=== PATIENT | female | born 1980 | race Two or more races ===

== ENCOUNTER 2019-04-17 11:27 | Emergency (ER) | payer OTHER ==
[~2019-04-17] VITALS: Ht 162.6 cm; Wt 111.1 kg
[2019-04-17 11:42] VITALS: BP 151/93
[2019-04-17] MEDS ORDERED: cefTRIAXone SOD 1,000 MG VL IM ONE (12:45)
[2019-04-17] MEDS ORDERED: IBUPROFEN 800 MG TAB PO ONE (12:45)
== END 2019-04-17 13:03 | disposition home or self-care (01) ==
LOC: ER 11:31
DX: H66.92 Otitis media, unspecified, left ear (principal); K04.7 Periapical abscess without sinus
CPT/HCPCS: 96372; 99283; J0696

== ENCOUNTER 2019-08-10 01:57 | Emergency (ER) | payer OTHER ==
[~2019-08-10] VITALS: Ht 162.6 cm; Wt 117.9 kg
[2019-08-10 03:14] VITALS: BP 138/78
[2019-08-10 03:32] LABS: Basophils # (auto) 0 uL; Eosinophils # (auto) 0.1 uL; Eosinophils % (auto) 1.2 % (0.0-7.0); Hemoglobin 8.6 g/dL (12.2-16.2); Mean Corpuscular Volume 74.8 fL (80.0-100.0); Monocytes # (auto) 0.4 uL; Nucleated Red Blood Cells % 0.1 %
[2019-08-10 03:35] LABS: Basophils % (auto) 0.7 % (0.0-2.0); Hematocrit 27.1 % (36.0-46.0); Lymphocytes # (auto) 1.2 uL; Lymphocytes % (auto) 18.2 % (10.0-50.0); Mean Corpuscular Hemoglobin 23.8 pg (28.0-32.0); Mean Corpuscular Hgb Conc. 31.8 g/dL (32.0-36.0); Monocytes % (auto) 5.9 % (0.0-12.0); Platelet Count (auto) 274 10^3/uL (140-450); Red Blood Cells 3.62 10^6/uL (4.0-5.20); Red Cell Distribution Width 15.6 % (11.8-14.3); White Blood Cell 6.7 10^3/uL (4.4-10.8)
[2019-08-10] MEDS ORDERED: ONDANSETRON HCL 4 MG/2 ML VIAL IV ONE (04:15)
[2019-08-10] MEDS ORDERED: MORPHINE SULFATE 4 MG/ML SYR/VIAL IV ONE (04:15)
[2019-08-10 04:17] LABS: Albumin 3.2 g/dL (3.4-5.0); Calcium 8.2 mg/dL (8.5-10.1); Potassium 3.8 mmol/L (3.5-5.1)
[2019-08-10 04:19] LABS: Bilirubin, Total 0.3 mg/dL (0.2-1.0); Total Protein 7.7 g/dL (6.4-8.2)
[2019-08-10 04:26] LABS: Urine Amorphous Crystal FEW /hpf (None Seen); Urine Bacteria MOD /hpf (None Seen); Urine Blood 3+ /uL (Negative); Urine Mucus FEW (None Seen); Urine Specific Gravity 1.022 (1.001-1.035); Urine WBC 27 /hpf (0 - 5)
== END 2019-08-10 05:14 | disposition home or self-care (01) ==
LOC: ER 02:00
DX: N39.0 Urinary tract infection, site not specified (principal); R42 Dizziness and giddiness
CPT/HCPCS: 36415; 74176; 80053; 81001; 81025; 82150; 83690; 84702; 85025; 96374; 96375; 99284; J2270; J2405

== ENCOUNTER 2019-08-26 22:07 | Emergency (ER) | payer OTHER ==
[~2019-08-26] VITALS: Ht 162.6 cm; Wt 122.0 kg
[2019-08-26 22:43] LABS: Basophils # (auto) 0.1 uL; Basophils % (auto) 0.8 % (0.0-2.0); Eosinophils # (auto) 0.1 uL; Eosinophils % (auto) 0.7 % (0.0-7.0); Hematocrit 22.8 % (36.0-46.0); Hemoglobin 7.3 g/dL (12.2-16.2); Lymphocytes # (auto) 1.4 uL; Lymphocytes % (auto) 16.2 % (10.0-50.0); Mean Corpuscular Hemoglobin 22.8 pg (28.0-32.0); Mean Corpuscular Hgb Conc. 31.8 g/dL (32.0-36.0); Mean Corpuscular Volume 71.6 fL (80.0-100.0); Monocytes # (auto) 0.5 uL; Monocytes % (auto) 5.7 % (0.0-12.0); Neutrophils # (auto) 6.7 uL; Neutrophils % (auto) 76.6 % (37.0-80.0); Nucleated Red Blood Cells % 0.1 %; Platelet Count (auto) 267 10^3/uL (140-450); Red Blood Cells 3.19 10^6/uL (4.0-5.20); Red Cell Distribution Width 16.2 % (11.8-14.3); White Blood Cell 8.8 10^3/uL (4.4-10.8)
[2019-08-26 22:59] LABS: Urine Bacteria NONE SEEN /hpf (None Seen); Urine Blood 2+ /uL (Negative); Urine Mucus FEW (None Seen); Urine Specific Gravity 1.016 (1.001-1.035); Urine WBC 5 /hpf (0 - 5)
[2019-08-26 23:01] LABS: Albumin 3.6 g/dL (3.4-5.0); BUN/Creatinine Ratio 12.9; Calcium 8.6 mg/dL (8.5-10.1); Potassium 3.8 mmol/L (3.5-5.1)
[2019-08-26 23:04] LABS: Bilirubin, Total 0.2 mg/dL (0.2-1.0); Total Protein 7.6 g/dL (6.4-8.2)
[2019-08-27] MEDS ORDERED: MORPHINE SULFATE 4 MG/ML SYR/VIAL IV ONE (00:45)
[2019-08-27] MEDS ORDERED: ONDANSETRON HCL 4 MG/2 ML VIAL IV ONE (00:45)
[2019-08-27 02:58] VITALS: BP 128/40
== END 2019-08-27 05:26 | disposition home or self-care (01) ==
LOC: ER 22:08
DX: N93.8 Other specified abnormal uterine and vaginal bleeding (principal); R10.2 Pelvic and perineal pain; R42 Dizziness and giddiness; J45.909 Unspecified asthma, uncomplicated; F17.210 Nicotine dependence, cigarettes, uncomplicated; Z90.49 Acquired absence of other specified parts of digestive tract
CPT/HCPCS: 36415; 76856; 80053; 81001; 84702; 85025; 86850; 86900; 86901; 96374; 96375; 99284; J2270; J2405

== ENCOUNTER 2023-10-25 16:41 | Emergency (ER) | payer MEDICAID, OTHER ==
[~2023-10-25] VITALS: Ht 162.6 cm; Wt 109.4 kg
[2023-10-25 16:58] VITALS: BP 155/96; PULSE 103; RESP 22; O2SAT 100
[2023-10-25 18:37] LABS: Basophils # (auto) 0 10 ^3/uL (0-0.2); Basophils % (auto) 0.4 % (0.0-2.0); Eosinophils # (auto) 0.1 10 ^3/uL (0-0.8); Monocytes # (auto) 0.4 10 ^3/uL (0-1.3)
[2023-10-25 18:38] LABS: Eosinophils % (auto) 1.6 % (0.0-7.0); Hematocrit 27.1 % (36.0-46.0); Lymphocytes # (auto) 1.4 10 ^3/uL (0.4-5.4); Lymphocytes % (auto) 17.3 % (10.0-50.0); Mean Corpuscular Hemoglobin 18.7 pg (28.0-32.0); Mean Corpuscular Hgb Conc. 29.7 g/dL (32.0-36.0); Mean Corpuscular Volume 63.1 fL (80.0-100.0); Monocytes % (auto) 4.9 % (0.0-12.0); Neutrophils # (auto) 6.1 10 ^3/uL (1.6-8.6); Neutrophils % (auto) 75.8 % (37.0-80.0); Nucleated Red Blood Cells % 0.1 %; White Blood Cell 8.1 10^3/uL (4.4-10.8)
[2023-10-25 18:43] LABS: Alkaline Phosphatase 76 U/L (46-116); Anion Gap 5 (5-15); Aspartate Aminotransferase 9 U/L (13-40); BUN/Creatinine Ratio 17.4 (10.0-20.0); Blood Urea Nitrogen 12 mg/dL (9-23); Carbon Dioxide 26 mmol/L (20-30); Chloride 108 mmol/L (98-107); Glucose 97 mg/dL (74-106); Potassium 3.7 mmol/L (3.5-5.1); Sodium 139 mmol/L (136-145)
[2023-10-25 18:44] LABS: Bilirubin, Total 0.2 mg/dL (0.2-1.0)
[2023-10-25 18:57] LABS: Alanine Aminotransferase < 9 U/L (7-40)
[2023-10-25 19:20] LABS: Hypochromia Marked; Platelet Estimate Adequate
[2023-10-25 19:34] LABS: Lipase 47 U/L (12-53)
[2023-10-25 19:57] LABS: Urine Bacteria FEW /hpf (None Seen); Urine Blood TRACE /uL (Negative); Urine Clarity Clear (Clear); Urine Color Yellow (Yellow); Urine Mucus FEW (None Seen); Urine Protein, UAD 1+ (Negative); Urine Specific Gravity 1.026 (1.001-1.035); Urine Urobilinogen Normal (Negative); Urine WBC 1 /hpf (0 - 5)
== END 2023-10-27 00:21 | disposition left against medical advice (07) ==
LOC: ER 16:41
DX: K59.00 Constipation, unspecified (principal); R10.12 Left upper quadrant pain; R10.32 Left lower quadrant pain; J45.909 Unspecified asthma, uncomplicated; F17.210 Nicotine dependence, cigarettes, uncomplicated; F12.10 Cannabis abuse, uncomplicated; Z32.02 Encounter for pregnancy test, result negative
CPT/HCPCS: 36415; 80053; 81001; 81025; 83690; 85025; 99283; J7030

== ENCOUNTER 2023-10-27 07:30 | Inpatient (IN) | payer MEDICAID ==
[~2023-10-27] VITALS: Ht 162.6 cm; Wt 112.0 kg
[2023-10-27 08:22] LABS: Urine Bacteria NONE SEEN /hpf (None Seen); Urine Blood TRACE /uL (Negative); Urine Clarity Clear (Clear); Urine Color Colorless (Yellow); Urine Mucus FEW (None Seen); Urine Protein, UAD TRACE (Negative); Urine Urobilinogen Normal (Negative); Urine WBC <1 /hpf (0 - 5); Urine pH 5.5 (5.0-8.0)
[2023-10-27 08:22] LABS: Basophils # (auto) 0 10 ^3/uL (0-0.2); Basophils % (auto) 0.5 % (0.0-2.0); Eosinophils # (auto) 0.1 10 ^3/uL (0-0.8); Hemoglobin 8.2 g/dL (12.2-16.2); Lymphocytes # (auto) 1.1 10 ^3/uL (0.4-5.4)
[2023-10-27 08:24] LABS: Eosinophils % (auto) 2.1 % (0.0-7.0); Hematocrit 28.2 % (36.0-46.0); Lymphocytes % (auto) 17.5 % (10.0-50.0); Mean Corpuscular Hemoglobin 18.5 pg (28.0-32.0); Mean Corpuscular Hgb Conc. 28.9 g/dL (32.0-36.0); Monocytes # (auto) 0.3 10 ^3/uL (0-1.3); Monocytes % (auto) 5.6 % (0.0-12.0); Neutrophils # (auto) 4.6 10 ^3/uL (1.6-8.6); Neutrophils % (auto) 74.3 % (37.0-80.0); Red Blood Cells 4.41 10^6/uL (4.0-5.20); Red Cell Distribution Width 18.4 % (11.8-14.3); White Blood Cell 6.2 10^3/uL (4.4-10.8)
[2023-10-27 08:50] LABS: Albumin 3.8 g/dL (3.2-4.8); Alkaline Phosphatase 68 U/L (46-116); Anion Gap 4 (5-15); Aspartate Aminotransferase 9 U/L (13-40); BUN/Creatinine Ratio 21.9 (10.0-20.0); Bilirubin, Total 0.2 mg/dL (0.2-1.0); Blood Urea Nitrogen 16 mg/dL (9-23); Calcium 8.3 mg/dL (8.7-10.4); Carbon Dioxide 22 mmol/L (20-30); Chloride 113 mmol/L (98-107); Glucose 95 mg/dL (74-106); Lipase 57 U/L (12-53); Sodium 139 mmol/L (136-145); Total Protein 7.8 g/dL (5.7-8.2)
[2023-10-27] MEDS: SODIUM CHLORIDE 0.9% 1,000 ML IV ONE ×2 (08:53→09:50)
[2023-10-27] MEDS: ONDANSETRON HCL 4 MG/2 ML VIAL IV ONE (08:56)
[2023-10-27] MEDS: MORPHINE SULFATE 4 MG/ML SYR/VIAL IV ONE (08:56)
[2023-10-27 08:58] LABS: Alanine Aminotransferase < 9 U/L (7-40)
[2023-10-27] MEDS: cefTRIAXone 1GM/50ML D5W 50 ML IV ONE (09:48)
[2023-10-27] MEDS: metroNIDAZOLE 500MG/100ML 100 ML IV ONE (10:45)
[2023-10-27] MEDS ORDERED: ONDANSETRON HCL 4 MG/2 ML VIAL IV PRN (11:15)
[2023-10-27] MEDS: PANTOPRAZOLE 40 MG/10 ML VIAL INJ IV ONE (11:15)
[2023-10-27 11:20] LABS: Triglycerides 99 mg/dL (< 150)
[2023-10-27 11:21] LABS: LDL Cholesterol 77 mg/dL (< 100)
[2023-10-27 11:22] LABS: HDL Cholesterol 50 mg/dL (40-59)
[2023-10-27] MEDS: DOXYCYCLINE 100MG/250ML 250 ML IV ONE (11:30)
[2023-10-27] MEDS: AMPICILLIN SOD 2GM INJ 2 GM in SODIUM CHL 0.9% 100 ML IV ONE (11:30)
[2023-10-27] MEDS ORDERED: GENTAMICIN PER PHARMACY 0 ML IV SCH (11:30)
[2023-10-27] MEDS: DOXYCYCLINE 100MG/250ML 250 ML IV SCH (11:30)
[2023-10-27] MEDS: SODIUM CHLORIDE 0.9% 1,000 ML IV SCH (11:38)
[2023-10-27 11:48] LABS: Cholesterol 134 mg/dL (< 200)
[2023-10-27] MEDS ORDERED: AMPICILLIN SOD 2GM INJ 2 GM in SODIUM CHL 0.9% 100 ML IV SCH (12:00)
[2023-10-27 12:40] LABS: Amphetamine Screen, Urine Neg (NEGATIVE); Barbiturate Scree,Urine Neg (NEGATIVE); Benzodiazephine Screen, Urine Neg (NEGATIVE); Cannabinoid Screen, Urine Pos (NEGATIVE); Cocaine Screen, Urine Neg (NEGATIVE); Opiate Scree,Urine Neg (NEGATIVE); Phencyclidine Screen, Urine Neg (NEGATIVE)
[2023-10-27 12:59] LABS: Erythrocyte Sedimentation Rate 58 mm/hr (0-20)
[2023-10-27 13:40] LABS: Anisocytosis Slight; Hypochromia Moderate
[2023-10-27 13:41] LABS: Platelet Estimate Adequate
[2023-10-27] MEDS: CLINDAMYCIN 900MG IV 50 ML IV SCH (14:00)
[2023-10-27] MEDS ORDERED: metroNIDAZOLE 500MG/100ML 100 ML IV SCH (14:00)
[2023-10-27] MEDS: KETOROLAC TROMETH 30 MG/ML 1ML VIAL IV ONE (14:58)
[2023-10-27 16:33] VITALS: RESP 16
[2023-10-27 16:47] VITALS: BP 137/75; PULSE 60; RESP 16; TEMP 98; O2SAT 99
[2023-10-27] MEDS ORDERED: PNEUMOCOCCAL VACC POLYS 25 MCG/0.5 ML VIAL IM ONE (17:30)
[2023-10-27] MEDS ORDERED: INFLUENZA QUAD 2023-2024 0.5 ML SYRG IM ONE (17:30)
[2023-10-27] MEDS: KETOROLAC TROMETH 30 MG/ML 1ML VIAL IV PRN (21:04)
[2023-10-28] VITALS (7 sets, daily range): BP systolic 125–160; BP diastolic 65–105; PULSE 62–79; RESP 16–22; TEMP 97.6–98.1; O2SAT 95–99
[2023-10-28] MEDS: ACETAMINOPHEN 325 MG TAB PO PRN (00:02)
[2023-10-28] MEDS: TEMAZEPAM 15 MG CAP PO ONE (00:02)
[2023-10-28] MEDS: HYDROcodone-ACET 10/325MG TAB PO ONE (00:41)
[2023-10-28 08:01] LABS: Alkaline Phosphatase 64 U/L (46-116); Anion Gap 3 (5-15); BUN/Creatinine Ratio 15.9 (10.0-20.0); Blood Urea Nitrogen 10 mg/dL (9-23); Calcium 8.1 mg/dL (8.5-10.1); Carbon Dioxide 22 mmol/L (20-30); Chloride 113 mmol/L (98-107); Glucose 82 mg/dL (74-106); Potassium 3.8 mmol/L (3.5-5.1); Sodium 138 mmol/L (136-145)
[2023-10-28 08:02] LABS: Albumin 3.3 g/dL (3.2-4.8); Aspartate Aminotransferase 10 U/L (13-40)
[2023-10-28 08:03] LABS: Bilirubin, Total 0.3 mg/dL (0.2-1.0); Total Protein 6.3 g/dL (5.7-8.2)
[2023-10-28 08:04] LABS: Alanine Aminotransferase < 9 U/L (7-40)
[2023-10-28 08:21] LABS: Basophils # (auto) 0 10 ^3/uL (0-0.2); Eosinophils # (auto) 0.2 10 ^3/uL (0-0.8); Hemoglobin 7.4 g/dL (12.2-16.2); Lymphocytes # (auto) 1.2 10 ^3/uL (0.4-5.4); Mean Corpuscular Volume 64.9 fL (80.0-100.0); Neutrophils # (auto) 4.1 10 ^3/uL (1.6-8.6); Nucleated Red Blood Cells % 0.1 %; White Blood Cell 5.8 10^3/uL (4.4-10.8)
[2023-10-28 08:24] LABS: Basophils % (auto) 0.5 % (0.0-2.0); Eosinophils % (auto) 2.6 % (0.0-7.0); Hematocrit 25.1 % (36.0-46.0); Lymphocytes % (auto) 20.2 % (10.0-50.0); Mean Corpuscular Hemoglobin 19.1 pg (28.0-32.0); Mean Corpuscular Hgb Conc. 29.4 g/dL (32.0-36.0); Monocytes # (auto) 0.4 10 ^3/uL (0-1.3); Monocytes % (auto) 6.2 % (0.0-12.0); Neutrophils % (auto) 70.5 % (37.0-80.0); Red Blood Cells 3.87 10^6/uL (4.0-5.20)
[2023-10-28] MEDS ORDERED: cefTRIAXone 1GM/50ML D5W 50 ML IV SCH (09:00)
[2023-10-28] MEDS ORDERED: ENOXAPARIN SOD 40 MG/0.4 ML SYRINGE SC SCH (10:00)
[2023-10-28 10:02] LABS: Anisocytosis Slight; Hypochromia Moderate; Platelet Estimate Adequate
[2023-10-28 10:32] LABS: INR 1.08 (0.9-1.15); Partial Thromboplastin Time 25.8 SEC (24.5-34.5); Prothrombin Time 11.3 sec (9.3-11.8)
[2023-10-28] MEDS: PANTOPRAZOLE 40 MG/10 ML VIAL INJ IV SCH (10:44)
[2023-10-28 11:11] LABS: Hepatitis B Surface Antigen Negative (Negative)
[2023-10-28 11:32] LABS: Hepatitis C Antibody Negative (Negative)
[2023-10-28 11:48] LABS: Folate (Folic Acid) 10.53 ng/mL (>5.38)
[2023-10-28 12:10] LABS: % Iron Saturation 5.2 % (15-50)
[2023-10-28] MEDS: D5W 5% IV SCH (18:42)
[2023-10-28] MEDS: GENTAMICIN SULFATE IV SCH (18:42)
[2023-10-28] MEDS: GADOTERATE MEG 10 MMOL/20ml INJ (0.5MMOL/ml) IV ONE (18:43)
[2023-10-28] MEDS: ERGOCALCIFEROL 50,000 UNIT(1.25MG) CAP PO SCH (20:50)
[2023-10-28] MEDS: TEMAZEPAM 15 MG CAP PO PRN (22:59)
[2023-10-29] VITALS (7 sets, daily range): BP systolic 124–168; BP diastolic 67–105; PULSE 60–77; RESP 18–20; TEMP 97.5–98.2; O2SAT 97–100
[2023-10-29 07:26] LABS: Basophils # (auto) 0 10 ^3/uL (0-0.2); Eosinophils # (auto) 0.1 10 ^3/uL (0-0.8); Hemoglobin 7.4 g/dL (12.2-16.2); Monocytes # (auto) 0.3 10 ^3/uL (0-1.3); Neutrophils # (auto) 3.7 10 ^3/uL (1.6-8.6)
[2023-10-29 07:29] LABS: Basophils % (auto) 0.4 % (0.0-2.0); Eosinophils % (auto) 2.2 % (0.0-7.0); Hematocrit 24.3 % (36.0-46.0); Lymphocytes % (auto) 18.7 % (10.0-50.0); Mean Corpuscular Hemoglobin 19.4 pg (28.0-32.0); Mean Corpuscular Hgb Conc. 30.5 g/dL (32.0-36.0); Mean Corpuscular Volume 63.6 fL (80.0-100.0); Monocytes % (auto) 6.2 % (0.0-12.0); Neutrophils % (auto) 72.5 % (37.0-80.0); Red Blood Cells 3.82 10^6/uL (4.0-5.20); Red Cell Distribution Width 17.9 % (11.8-14.3); White Blood Cell 5.2 10^3/uL (4.4-10.8)
[2023-10-29 07:50] LABS: Alkaline Phosphatase 65 U/L (46-116); Anion Gap 5 (5-15); BUN/Creatinine Ratio 12.5 (10.0-20.0); Blood Urea Nitrogen 8 mg/dL (9-23); Calcium 8.4 mg/dL (8.5-10.1); Carbon Dioxide 22 mmol/L (20-30); Chloride 111 mmol/L (98-107); Glucose 83 mg/dL (74-106); Potassium 3.9 mmol/L (3.5-5.1); Sodium 138 mmol/L (136-145)
[2023-10-29 07:51] LABS: Albumin 3.4 g/dL (3.2-4.8); Aspartate Aminotransferase 12 U/L (13-40); Phosphorus 3.7 mg/dL (2.4-5.1)
[2023-10-29 07:52] LABS: Bilirubin, Total 0.3 mg/dL (0.2-1.0); Total Protein 6.6 g/dL (5.7-8.2)
[2023-10-29 07:57] LABS: Alanine Aminotransferase < 9 U/L (7-40)
[2023-10-29] MEDS ORDERED: MORPHINE SULFATE INJ 2 MG/ml SYRG IV PRN (08:45)
[2023-10-29] MEDS: MORPHINE SULFATE INJ 2 MG/ml SYRG IV PRN (09:54)
[2023-10-29] MEDS: fentaNYL CITRATE 100 MCG/2 ML VL IV ONE (10:30)
[2023-10-29] MEDS: MIDAZOLAM HCL 2MG/2ML 2ml VIAL (1mg/ml) IV ONE (10:30)
[2023-10-29] MEDS: LIDOCAINE 1% HCL (LOCAL ANESTH.) INJ 20ML MDV ONE (10:40)
[2023-10-29 11:06] LABS: RPR Non Reactive (Non Reactive)
[2023-10-29] MEDS: IRON SUCROSE COMPLEX 100 ML IV SCH (12:00)
[2023-10-30] VITALS (7 sets, daily range): BP systolic 95–143; BP diastolic 66–117; PULSE 55–111; RESP 18–20; TEMP 97.7–98.2; O2SAT 18–100
[2023-10-30 06:35] LABS: Basophils # (auto) 0 10 ^3/uL (0-0.2); Basophils % (auto) 0.6 % (0.0-2.0); Eosinophils # (auto) 0.1 10 ^3/uL (0-0.8); Hemoglobin 7.5 g/dL (12.2-16.2); Lymphocytes # (auto) 0.9 10 ^3/uL (0.4-5.4); Monocytes # (auto) 0.3 10 ^3/uL (0-1.3); Neutrophils # (auto) 2.3 10 ^3/uL (1.6-8.6)
[2023-10-30 06:38] LABS: Eosinophils % (auto) 2.5 % (0.0-7.0); Hematocrit 24.4 % (36.0-46.0); Lymphocytes % (auto) 25.1 % (10.0-50.0); Mean Corpuscular Hemoglobin 19.6 pg (28.0-32.0); Mean Corpuscular Hgb Conc. 30.6 g/dL (32.0-36.0); Monocytes % (auto) 8.5 % (0.0-12.0); Neutrophils % (auto) 63.3 % (37.0-80.0); Red Blood Cells 3.82 10^6/uL (4.0-5.20); Red Cell Distribution Width 18.1 % (11.8-14.3); White Blood Cell 3.7 10^3/uL (4.4-10.8)
[2023-10-30 06:44] LABS: Anion Gap 4 (5-15); Carbon Dioxide 23 mmol/L (20-30); Chloride 110 mmol/L (98-107); Potassium 3.7 mmol/L (3.5-5.1); Sodium 137 mmol/L (136-145)
[2023-10-30 06:45] LABS: Calcium 8.5 mg/dL (8.5-10.1)
[2023-10-30 06:50] LABS: BUN/Creatinine Ratio 12.5 (10.0-20.0); Blood Urea Nitrogen 9 mg/dL (9-23); Glucose 83 mg/dL (74-106)
[2023-10-30 11:07] LABS: Chlamydia Trachomatis, NAA Negative (Negative); Neisseria gonorrhoeae, NAA Negative (Negative)
[2023-10-30 21:40] LABS: COVID19 ANTIGEN SOFIA FIA NEGATIVE (NEGATIVE)
[2023-10-31 00:28] VITALS: BP 108/57; PULSE 72; RESP 20; TEMP 98.3; O2SAT 96
[2023-10-31 04:00] VITALS: BP 131/81; PULSE 67; RESP 21; TEMP 98.6; O2SAT 92
== END 2023-10-31 01:03 | disposition short-term general hospital (02) | DRG 531 ==
LOC: ER 07:30 → TELE 11:05 → WEST WING 15:40
PROVIDERS: ADMIT Internal Medicine; ATTEND Internal Medicine
PROC: 0W9G3ZZ Drainage of Peritoneal Cavity, Percutaneous Approach (ICD-10-PCS; principal; 2023-10-29)
DX: N70.93 Salpingitis and oophoritis, unspecified (principal); K56.7 Ileus, unspecified; K76.0 Fatty (change of) liver, not elsewhere classified; N30.90 Cystitis, unspecified without hematuria; R16.2 Hepatomegaly with splenomegaly, not elsewhere classified; F17.210 Nicotine dependence, cigarettes, uncomplicated; D50.9 Iron deficiency anemia, unspecified; Z20.822 Contact with and (suspected) exposure to COVID-19; Z68.41 Body mass index [BMI] 40.0-44.9, adult; N70.92 Oophoritis, unspecified; R16.1 Splenomegaly, not elsewhere classified; J45.909 Unspecified asthma, uncomplicated; E66.01 Morbid (severe) obesity due to excess calories; N92.0 Excessive and frequent menstruation with regular cycle; R19.00 Intra-abdominal and pelvic swelling, mass and lump, unspecified site; Z83.3 Family history of diabetes mellitus; Z87.440 Personal history of urinary (tract) infections
CPT/HCPCS: 36415; 72192; 73723; 74176; 75989; 76700; 76830; 76856; 80048; 80053; 80061; 80170; 80307; 81001; 81025; 82270; 82306; 82607; 82728; 82746; 83036; 83540; 83550; 83605; 83615; 83690; 83735; 84100; 84443; 84702; 85025; 85045; 85610; 85652; 85730; 86592; 86703; 86803; 86850; 86900; 86901; 87040; 87205; 87340; 87426; 96365; 96375; 99291; C1729; C9113; G0378; J1756; J1885; J2001; J2250; J2405; J3490; J7060

== ENCOUNTER 2024-05-23 16:47 | Emergency (ER) | payer MEDICAID ==
[~2024-05-23] VITALS: Ht 165.1 cm; Wt 81.8 kg
[2024-05-23 17:37] LABS: Urine Bacteria FEW /hpf (None Seen); Urine Blood 1+ /uL (Negative); Urine Clarity Ex.Turbid (Clear); Urine Color Yellow (Yellow); Urine Hyaline Cast MANY /lpf (0 - 2); Urine Mucus FEW (None Seen); Urine Protein, UAD 2+ (Negative); Urine Specific Gravity 1.022 (1.001-1.035); Urine Urobilinogen Normal (Negative); Urine WBC 22 /hpf (0 - 5); Urine pH 5.5 (5.0-9.0)
[2024-05-23 17:43] LABS: Amphetamine Screen, Urine Pos (NEGATIVE); Barbiturate Scree,Urine Neg (NEGATIVE); Benzodiazephine Screen, Urine Neg (NEGATIVE); Cannabinoid Screen, Urine Pos (NEGATIVE); Cocaine Screen, Urine Neg (NEGATIVE); Opiate Scree,Urine Neg (NEGATIVE); Phencyclidine Screen, Urine Neg (NEGATIVE)
[2024-05-23 18:44] LABS: Basophils # (auto) 0 10 ^3/uL (0-0.2); Basophils % (auto) 0.4 % (0.0-2.0); Eosinophils # (auto) 0 10 ^3/uL (0-0.8); Eosinophils % (auto) 0.4 % (0.0-7.0); Hemoglobin 14.4 g/dL (12.2-16.2); Lymphocytes # (auto) 1.5 10 ^3/uL (0.4-5.4); Lymphocytes % (auto) 13.4 % (10.0-50.0); Mean Corpuscular Hemoglobin 26.4 pg (28.0-32.0); Mean Corpuscular Hgb Conc. 32.6 g/dL (32.0-36.0); Mean Corpuscular Volume 80.9 fL (80.0-100.0); Monocytes # (auto) 0.6 10 ^3/uL (0-1.3); Monocytes % (auto) 5.1 % (0.0-12.0); Neutrophils # (auto) 8.9 10 ^3/uL (1.6-8.6); Neutrophils % (auto) 80.7 % (37.0-80.0); Nucleated Red Blood Cells % 0.1 %; Platelet Count (auto) 413 10^3/uL (140-450); Red Blood Cells 5.44 10^6/uL (4.0-5.20)
[2024-05-23 18:59] LABS: Acetaminophen < 2.0 UG/ML (10.0-20.0); Salicylate < 3.0 mg/dL (2.8-20.0)
[2024-05-23 19:30] VITALS: PULSE 107; RESP 18; O2SAT 97
[2024-05-23 19:32] LABS: Alanine Aminotransferase 27 U/L (7-40); Albumin 5.3 g/dL (3.2-4.8); Alkaline Phosphatase 116 U/L (46-116); Anion Gap 14 (5-15); Aspartate Aminotransferase 22 U/L (13-40); BUN/Creatinine Ratio 10.3 (10.0-20.0); Bilirubin, Total 0.7 mg/dL (0.2-1.0); Blood Alcohol < 3.0 mg/dL (<10); Blood Urea Nitrogen 28 mg/dL (9-23); Calcium 10.5 mg/dL (8.7-10.4); Carbon Dioxide 18 mmol/L (20-30); Chloride 109 mmol/L (98-107); Glucose 122 mg/dL (74-106); Potassium 4.2 mmol/L (3.5-5.1); Sodium 141 mmol/L (136-145); Total Protein 8.8 g/dL (5.7-8.2)
[2024-05-23] MEDS: cefTRIAXone SOD 1,000 MG VL IM ONE (19:48)
[2024-05-23] MEDS: OLANZapine 5 MG TAB PO ONE (21:05)
[2024-05-23] MEDS: LORazepam 0.5 MG TAB PO ONE (21:58)
[2024-05-24 08:00] VITALS: BP 130/80; TEMP 97.6
[2024-05-24 08:01] VITALS: PULSE 85; RESP 18; O2SAT 95
[2024-05-24] MEDS ORDERED: OLANZapine 5 MG TAB PO ONE (20:00)
== END 2024-05-24 18:29 | disposition left against medical advice (07) ==
LOC: EDBD 16:47 → ER 16:47
DX: R45.851 Suicidal ideations (principal); R10.2 Pelvic and perineal pain; N39.0 Urinary tract infection, site not specified; F41.9 Anxiety disorder, unspecified; J45.909 Unspecified asthma, uncomplicated; F17.210 Nicotine dependence, cigarettes, uncomplicated; F12.10 Cannabis abuse, uncomplicated; Z79.899 Other long term (current) drug therapy
CPT/HCPCS: 36415; 80053; 80307; 80320; 80329; 81001; 81025; 84702; 85025

== ENCOUNTER 2024-10-30 14:02 | Inpatient (IN) | payer MEDICAID ==
[~2024-10-30] VITALS: Ht 162.6 cm; Wt 100.9 kg
--- NOTE | 2024-10-30 14:26 | ECG ---
[facility] Test Date: 2024-10-30 Test Time: 14:21:39 Pat Name: CHINA RAMIREZ Department: er Room: [address] [place] [address] Gender: F Sales Force Administrator: phoebe : 1980 Requested By: SALLIE WOOD Order Number: [id number] Reading MD: Pete Luu Measurements Intervals [place] Rate: 89 P: 44 [place]: 151 QRS: -19 QRSD: 72 T: 64 QT: 357 QTc: 435 Interpretive Statements Sinus rhythm LVH by voltage Electronically Signed On 11-02-2024 8:22:40 PST by Pete Luu Please click the below link to view image of tracing.
[2024-10-30 15:06] LABS: Basophils # (auto) 0 10 ^3/uL (0-0.2); Basophils % (auto) 0.6 % (0.0-2.0); Eosinophils # (auto) 0.1 10 ^3/uL (0-0.8); Eosinophils % (auto) 1.4 % (0.0-7.0); Hematocrit 48.4 % (36.0-46.0); Hemoglobin 16.2 g/dL (12.2-16.2); Lymphocytes # (auto) 1.6 10 ^3/uL (0.4-5.4); Lymphocytes % (auto) 27.4 % (10.0-50.0); Mean Corpuscular Hemoglobin 29.2 pg (28.0-32.0); Mean Corpuscular Hgb Conc. 33.5 g/dL (32.0-36.0); Mean Corpuscular Volume 87.2 fL (80.0-100.0); Monocytes # (auto) 0.4 10 ^3/uL (0-1.3); Neutrophils # (auto) 3.7 10 ^3/uL (1.6-8.6); Neutrophils % (auto) 63.6 % (37.0-80.0); Nucleated Red Blood Cells % 0.3 %; Platelet Count (auto) 319 10^3/uL (140-450); Red Blood Cells 5.55 10^6/uL (4.0-5.20); Red Cell Distribution Width 13.9 % (11.8-14.3); White Blood Cell 5.8 10^3/uL (4.4-10.8)
[2024-10-30] MEDS: LORazepam 2MG/ML-1ML VIAL IV ONE (15:07)
[2024-10-30 15:11] VITALS: PULSE 90; RESP 17; O2SAT 98
[2024-10-30 15:12] LABS: Chloride 103 mmol/L (98-107); Potassium 4.1 mmol/L (3.5-5.1); Sodium 141 mmol/L (136-145)
[2024-10-30 15:13] LABS: Anion Gap 10 (5-15); Carbon Dioxide 28 mmol/L (20-31)
[2024-10-30 15:18] LABS: BUN/Creatinine Ratio 17.5 (10.0-20.0); Blood Urea Nitrogen 17 mg/dL (9-23)
[2024-10-30 15:23] LABS: Calcium 10.8 mg/dL (8.7-10.4); Glucose 107 mg/dL (74-106)
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
[2024-10-30 15:49] LABS: Amphetamine Screen, Urine Neg (NEGATIVE)
[2024-10-30 15:51] LABS: Cannabinoid Screen, Urine Pos (NEGATIVE)
[2024-10-30 15:53] LABS: Barbiturate Scree,Urine Neg (NEGATIVE); Benzodiazephine Screen, Urine Neg (NEGATIVE); Cocaine Screen, Urine Neg (NEGATIVE); Opiate Scree,Urine Neg (NEGATIVE); Phencyclidine Screen, Urine Neg (NEGATIVE)
--- NOTE | 2024-10-30 15:59 | DVH ---
EXAM: XY CHEST PORTABLE HISTORY: near syncope COMPARISON: None TECHNIQUE: PA view of the chest was performed. FINDINGS: No pneumothorax, consolidative infiltrates, or pulmonary edema. The heart is not enlarged. There is mild thoracic degenerative disc disease. IMPRESSION: No acute intrathoracic process.
--- NOTE | 2024-10-30 16:37 | DVH ---
EXAM: CT HEAD WITHOUT CONTRAST HISTORY: possible new onset seizures COMPARISON: None TECHNIQUE: Axial images of the head were obtained and reformatted in coronal and sagittal planes. All CT scans at this medical facility are performed using dose modulation techniques as appropriate t o a performed exam including the following: Automated exposure control was utilized; adjustment of th e MA and/or KV according to patient size; and use of iterative reconstruction technique. CT Dose: CTDI volume is 52.61 mGy. Dose-length product is 843.53 mGy*cm FINDINGS: There is no evidence of acute intracranial hemorrhage, mass, mass effect midline shift. There is no h ydrocephalus or extra-axial fluid collection. Wan-white matter differentiation is maintained. There is mucosal thickening in the paranasal sinuses. Partial opacification of the left mastoid air c ells. The calvarium is intact. IMPRESSION: 1. No acute intracranial process. HS:Y
[2024-10-30] MEDS: LOSARTAN POTASSIUM 50 MG TAB PO SCH (22:45)
[2024-10-30 23:09] VITALS: BP 127/92; TEMP 97.5
[2024-10-30 23:17] VITALS: PULSE 84; RESP 18; O2SAT 98
[2024-10-30 23:24] LABS: Alanine Aminotransferase 17 U/L (7-40); Albumin 4.8 g/dL (3.2-4.8); Alkaline Phosphatase 76 U/L (46-116); Anion Gap 8 (5-15); Aspartate Aminotransferase 15 U/L (13-40); BUN/Creatinine Ratio 17.8 (10.0-20.0); Blood Urea Nitrogen 18 mg/dL (9-23); Calcium 10.1 mg/dL (8.7-10.4); Carbon Dioxide 24 mmol/L (20-31); Potassium 3.6 mmol/L (3.5-5.1); Sodium 142 mmol/L (136-145)
[2024-10-30 23:25] LABS: Bilirubin, Total 0.4 mg/dL (0.2-1.0); Total Protein 7.6 g/dL (5.7-8.2)
[2024-10-30 23:26] LABS: Chloride 110 mmol/L (98-107); Glucose 110 mg/dL (74-106)
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
[2024-10-31] MEDS ORDERED: hydrALAZINE HCL 20 MG/ML VL IV PRN (07:15)
[2024-10-31] MEDS ORDERED: LORazepam 2MG/ML-1ML VIAL IV PRN (07:15)
--- NOTE | 2024-10-31 13:06 | DVHPN2 ---
Eyes: No Pain, No Vision change, No Conjunctivae inflammation, No Eyelid inflammation, No Other, No Redness ENT: No Ear pain, No Ear discharge, No Nose pain, No Nose discharge, No Nose congestion, No Mouth pain, No Mouth swelling, No Throat pain, No Throat swelling, No Other Cardiovascular: No Chest Pain, No Palpitations, No Orthopnea, No Paroxysmal Noc. Dyspnea, No Edema, No Lt Headedness, No Other Respiratory: No Cough, No Dry, No Shortness of breath, No SOB with excertion, No Wheezing, No Hemoptysis, No Pleuritic Pain, No Sputum, No Other Gastrointestinal: No Nausea, No Vomiting, No Abdominal Pain, No Diarrhea, No Constipation, No Melena, No Hematochezia, No Other Genitourinary: No Dysuria, No Frequency, No Incontinence, No Hematuria, No Retention, No Other Musculoskeletal: No other, No neck pain, No shoulder pain, No arm pain, No back pain, No hand pain, No leg pain, No foot pain Skin: No Rash, No Lesions, No Jaundice, No Bruising, No Other Objective Vitals Vital Signs Date Time Temp Pulse Resp B/P (MAP) Pulse Ox O2 Delivery O2 Flow Rate FiO2 10/30/24 23:17 84 18 98 Room Air* 0 21 10/30/24 23:09 97.5 127/92 (104) 97.5 Medications Current Medications Medications Dose Ordered Sig/Margot Route Start Time Stop Time Status Last Admin Dose Admin Lorazepam 1 mg Q5MINP PRN IV 10/31/24 07:15 Hydralazine HCl 10 mg Q6HP PRN IV 10/31/24 07:15 Laboratory Results Laboratory Tests 10/30/24 14:47 10/30/24 22:58 Chemistry Test 10/30/24 14:47 10/30/24 22:58 Calcium Level 10.8 mg/dL (8.7-10.4) H 10.1 mg/dL (8.7-10.4) Albumin 4.8 g/dL (3.2-4.8) Total Protein 7.6 g/dL (5.7-8.2) LFT Test 10/30/24 22:58 Alanine Aminotransferase (ALT) 17 U/L (7-40) Alkaline Phosphatase 76 U/L (46-116) Aspartate Amino Transferase (AST) 15 U/L (13-40) Total Bilirubin 0.4 mg/dL (0.2-1.0) HgA1c, TSH Test 10/30/24 22:58 Thyroid Stimulating Hormone (TSH) 2.46 uIU/mL (0.55-4.78) Urinalysis Test 10/30/24 14:27 Urine Test Negative (Negative) JAQUELIN THORPE MD Oct 31, 2024 13:06
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
== END 2024-10-31 04:00 | disposition left against medical advice (07) | DRG 199 ==
LOC: ER 14:02 → OVERFLOW 22:39
PROVIDERS: ATTEND Internal Medicine
DX: I16.9 Hypertensive crisis, unspecified (principal); E66.9 Obesity, unspecified; G40.909 Epilepsy, unspecified, not intractable, without status epilepticus; I10 Essential (primary) hypertension; J45.909 Unspecified asthma, uncomplicated; F41.9 Anxiety disorder, unspecified; F17.210 Nicotine dependence, cigarettes, uncomplicated; I49.9 Cardiac arrhythmia, unspecified; Z83.3 Family history of diabetes mellitus; Z68.38 Body mass index [BMI] 38.0-38.9, adult; G40.509 Epileptic seizures related to external causes, not intractable, without status epilepticus
CPT/HCPCS: 36415; 70450; 71045; 80048; 80053; 80307; 81025; 82962; 84443; 84484; 85025; 93005; 96374; 99291; G0378